=== PATIENT | female | born 1975 | race Caucasian/White ===

== ENCOUNTER 2019-01-27 21:22 | Emergency (ER) | payer BC, OTHER ==
[~2019-01-27] VITALS: Ht 165.1 cm; Wt 94.3 kg
[~2019-01-27 21:22] MED LIST: CELEXA20 MG PO; CIPRO500 MG PO; CYCLOBENZAPRINE10 MG PO; HYDROCHLOROTHIA25 MG PO; LISINOPRIL20 MG PO; METFORMIN HCL1000 MG PO; METOPROLOL SUCC25 MG PO; NORCO 5-325 TA1 EACH PO; TAMIFLU75 MG PO; TYLENOL WITH C1 EACH PO
== END 2019-01-28 | disposition home or self-care (01) ==
LOC: ED 21:22
DX: K52.9 Noninfective gastroenteritis and colitis, unspecified (principal); I10 Essential (primary) hypertension; E11.9 Type 2 diabetes mellitus without complications; F32.9 Major depressive disorder, single episode, unspecified; F41.9 Anxiety disorder, unspecified; Z88.5 Allergy status to narcotic agent; Z88.4 Allergy status to anesthetic agent; Z88.8 Allergy status to other drugs, medicaments and biological substances; Z79.84 Long term (current) use of oral hypoglycemic drugs; Z79.899 Other long term (current) drug therapy
CPT/HCPCS: 80053; 83690; 85025; 96361; 96374; 96375; 99284-25; J1200; J1885; J2270; J2405; J2765; J7030

== ENCOUNTER 2019-10-28 11:40 | Emergency (ER) | payer BC, OTHER ==
[~2019-10-28] VITALS: Ht 165.1 cm; Wt 95.2 kg
[2019-10-28] MEDS ORDERED: ASPIRIN EC81 MG PO (17:18)
--- NOTE | 2019-10-29 18:05 | EKG ---
[facility] [address] [facility] [place], [place] [address] Signed Normal sinus rhythm Normal ECG When compared with ECG of 01-MAY-2016 16:03, No significant change was found Confirmed by ROSI BROWN DO ([id number]) on 10/29/2019 6:04:49 PM Electronically Signed By: ROSI BROWN DO 10/29/19 1805 PATIENT NAME: TAMIKA WHALEY Electrocardiogram DATE OF : 71 PHYSICIAN: ROSI BROWN DO REPORT #: [id number] REPORT IS CONFIDENTIAL AND NOT TO BE RELEASED WITHOUT AUTHORIZATION
== END 2019-10-28 17:23 | disposition home or self-care (01) ==
LOC: ED 11:40
DX: R07.9 Chest pain, unspecified (principal); I10 Essential (primary) hypertension; E11.9 Type 2 diabetes mellitus without complications; F32.9 Major depressive disorder, single episode, unspecified; F41.9 Anxiety disorder, unspecified; Z88.8 Allergy status to other drugs, medicaments and biological substances; Z88.7 Allergy status to serum and vaccine; Z88.5 Allergy status to narcotic agent; Z79.899 Other long term (current) drug therapy
CPT/HCPCS: 71046; 80053; 83690; 83735; 84484; 85025; 85379; 93005; 93010; 99285-25